=== PATIENT | female | born 1960 | race Caucasian/White ===

== ENCOUNTER 2020-12-29 12:15 | Emergency (ER) | payer SELFPAY ==
[~2020-12-29] VITALS: Ht 154.9 cm; Wt 59.0 kg
== END 2020-12-29 15:15 | disposition home or self-care (01) ==
LOC: ER1 12:15
DX: U07.1 COVID-19 (principal); Z23 Encounter for immunization; I10 Essential (primary) hypertension; Z88.0 Allergy status to penicillin; Z88.5 Allergy status to narcotic agent; F17.210 Nicotine dependence, cigarettes, uncomplicated
CPT/HCPCS: 99284; M0243

== ENCOUNTER → 2021-01-05 | Outpatient (CLI) | payer OTHER | LOC: MAMO 11-24 14:30 | DX: Z12.31 Encounter for screening mammogram for malignant neoplasm of breast (principal) | CPT/HCPCS: 77063; 77067 ==

== ENCOUNTER 2021-02-02 16:38 | Emergency (ER) | payer OTHER ==
[2021-02-02 17:50] LABS: HEMOGLOBIN 13.5 gm/dl (12.3-15.3); RED BLOOD COUNT 3.96 M/UL (4.00-5.10); WHITE BLOOD COUNT 11.6 K/UL (4.5-11.0)
[2021-02-02 18:13] LABS: BUN/CREATININE RATIO 17 (0-10)
[2021-02-02] MEDS ORDERED: PREDNISONE20 MG PO (19:20)
[2021-02-02] MEDS ORDERED: AZITHROMYCIN250 MG PO (19:20)
== END 2021-02-02 19:30 | disposition home or self-care (01) ==
LOC: ER1 16:38
PROVIDERS: Family Medicine
DX: J44.0 Chronic obstructive pulmonary disease with (acute) lower respiratory infection (principal); J20.9 Acute bronchitis, unspecified; I10 Essential (primary) hypertension; F17.200 Nicotine dependence, unspecified, uncomplicated; E78.5 Hyperlipidemia, unspecified; Z88.0 Allergy status to penicillin
CPT/HCPCS: 36600; 71045; 80053; 82550; 82553; 82803; 83605; 83874; 83880; 84484; 85025; 93005; 96374; 99285; J2930

== ENCOUNTER → 2021-06-08 | Outpatient (CLI) | payer OTHER ==
[~2021-06-08] MED LIST: AZITHROMYCIN250 MG PO; PREDNISONE20 MG PO
== END ==
LOC: KOH-I 06-05 09:00
DX: F17.210 Nicotine dependence, cigarettes, uncomplicated (principal); R91.1 Solitary pulmonary nodule
CPT/HCPCS: 71271